=== PATIENT | female | born 1935 | race Caucasian/White ===

== ENCOUNTER → 2017-08-27 | Outpatient (CLI) | payer MEDICARE, MEDICAID ==
[~2017-08-27] MED LIST: SYNTHROID 0.10.15 MG PO
--- NOTE | 2017-08-28 05:13 | RADIOLOGY REPORT PS360 ---
US THYROID HISTORY: HYPOTHYROIDISM, MULTINODULAR THYROID ORDERING PHYSICIAN: Neel King MD PATIENT AGE: 82 years COMPARISON: 07/25/2016 FINDINGS: Right lobe: 3.8 x 2.1 x 1.6 cm. There is heterogeneous echogenicity with a multinodular appearance. The largest nodule on the right is 1 x 0.5 cm unchanged. Left lobe: 2.8 x 1.3 x 1.2 cm with heterogeneous echogenicity a multinodular appearance. 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 Small bilateral nodules are unchanged
== END ==
LOC: RAD 08-25 11:00
DX: E03.9 Hypothyroidism, unspecified (principal); E04.2 Nontoxic multinodular goiter